=== PATIENT | female | born 1990 | race African-American/Black ===

== ENCOUNTER 2016-09-05 17:15 | Emergency (ER) | payer MEDICAID ==
[~2016-09-05] VITALS: Ht 157.5 cm; Wt 60.0 kg
[2016-09-05] MEDS ORDERED: ACETAMINOPHEN 325MG TABLET PO ONE (22:45)
[2016-09-05] MEDS ORDERED: ONDANSETRON 4MG ODT PO ONE (22:45)
[2016-09-05 23:03] LABS: BASOPHILS % 0.8 % (0.0-2.0); EOSINOPHILS % 2.7 % (0.0-5.0); HEMATOCRIT. 38.5 % (36.0-48.0); LYMPHOCYTES % 30.3 % (20.0-50.0); MEAN CORPUSCULAR HGB CONC 33.9 g/dL (31.0-37.0); MEAN CORPUSCULAR VOLUME 88.6 fL (81.0-99.0); MEAN PLATELET VOLUME 7.3 fl (7.4-10.4); MONOCYTES % 6.3 % (2.0-8.0); NEUTROPHILS % 59.9 % (40.0-76.0); PLATELET 299 x1000/uL (130-400); RED BLOOD CELL COUNT 4.34 mill/uL (4.2-5.4); RED CELL DISTRIBUTION WIDTH 13.9 % (11.6-14.6); WHITE BLOOD COUNT 11.9 x1000/uL (4.5-11.0)
[2016-09-05 23:15] VITALS: BP 118/81
[2016-09-06 01:08] LABS: CLARITY URINE CLOUDY (CLEAR); COLOR URINE YELLOW (YELLOW); GLUCOSE URINE NEGATIVE (NEGATIVE); KETONES URINE 4+ (NEGATIVE); LEUKOCYTE ESTERASE URINE TRACE (NEGATIVE); NITRITE URINE NEGATIVE (NEGATIVE); OCCULT BLOOD URINE NEGATIVE (NEGATIVE); PROTEIN URINE NEGATIVE (NEGATIVE); SPECIFIC GRAVITY URINE 1.022 (1.005-1.030); UROBILINOGEN URINE 0.2 E.U./dL (0.2-1.0)
[2016-09-06 04:28] LABS: SQUAMOUS EPITHELIAL CELL URINE 3+ /lpf (RARE/1+)
[2016-09-06 04:30] LABS: RBC URINE 0-2 /hpf (0-2)
[2016-09-06 04:31] LABS: BACTERIA URINE 1+
== END 2016-09-06 01:45 | disposition home or self-care (01) ==
LOC: ER 19:56
DX: O23.41 Unspecified infection of urinary tract in pregnancy, first trimester (principal); Z3A.01 Less than 8 weeks gestation of pregnancy
CPT/HCPCS: 36415; 76801; 76817; 81001; 84702; 85025; 86850; 86900; 86901; 99285; Q0162; Z7610

== ENCOUNTER 2017-01-20 11:39 | Observation (INO) | payer MEDICAID ==
[~2017-01-20] VITALS: Ht 157.5 cm; Wt 61.2 kg
[2017-01-20] MEDS ORDERED: LACTATED RINGERS 1,000 ML IV SCH (12:15)
[2017-01-20 12:32] LABS: CLARITY URINE CLEAR (CLEAR); COLOR URINE YELLOW (YELLOW); GLUCOSE URINE NEGATIVE (NEGATIVE); KETONES URINE TRACE (NEGATIVE); LEUKOCYTE ESTERASE URINE NEGATIVE (NEGATIVE); NITRITE URINE NEGATIVE (NEGATIVE); OCCULT BLOOD URINE NEGATIVE (NEGATIVE); PROTEIN URINE NEGATIVE (NEGATIVE); SPECIFIC GRAVITY URINE 1.013 (1.005-1.030); UROBILINOGEN URINE 0.2 E.U./dL (0.2-1.0)
[2017-01-20 13:47] LABS: *AMPHETAMINES SCREEN URINE NEGATIVE (NEGATIVE); *BARBITURATES SCREEN URINE NEGATIVE (NEGATIVE); *BENZODIAZEPINES SCREEN URINE NEGATIVE (NEGATIVE); *COCAINE SCREEN URINE NEGATIVE (NEGATIVE); CANNABINOID URINE SCREEN NEGATIVE (NEGATIVE); METHADONE URINE SCREEN NEGATIVE (NEGATIVE); OPIATES URINE SCREEN NEGATIVE (NEGATIVE); PHENCYCLIDINE URINE SCREEN NEGATIVE (NEGATIVE)
[2017-01-20] MEDS ORDERED: PREN-88 PO (13:56)
[2017-03-15] MEDS ORDERED: PNV1TABL76 MT (13:53)
== END 2017-01-20 14:00 | disposition home or self-care (01) ==
LOC: L&D 11:39
PROVIDERS: ADMIT Specialist; ATTEND Specialist
DX: O26.892 Other specified pregnancy related conditions, second trimester (principal); R10.31 Right lower quadrant pain; M54.9 Dorsalgia, unspecified; Z3A.26 26 weeks gestation of pregnancy
CPT/HCPCS: 80305; 81003; 99281; G0378; J7120